=== PATIENT | female | born 1955 | race Caucasian/White ===

== ENCOUNTER 2016-08-01 10:29 | Outpatient (CLI) | payer BC ==
[2016-08-01 10:45] LABS: Hemoglobin 10.2 g/dL (12.0-16.0)
[2016-08-01 11:14] LABS: Anion Gap 23 mmol/L (10-20); BUN (Urea Nitrogen) 66 mg/dL (9.8-20.1); Calc. Creatinine Clearance 0 mL/min (70-130); Calcium 9.4 mg/dL (7.8-10.44); Carbon Dioxide 17 mmol/L (23-31); Chloride 109 mmol/L (98-107); Estimated GFR-MDRD 13; Glucose 148 mg/dL (80-115); Potassium 4.7 mmol/L (3.5-5.1); Sodium 144 mmol/L (136-145)
[2016-08-01 17:27] LABS: Iron 76 ug/dL (50-170); Iron Binding Capacity, Total 265 mcg/dL (265-497)
[2016-08-01 17:32] LABS: Creatinine, Urine 37.38 mg/dL (47-110)
== END 2016-08-01 10:30 | disposition home or self-care (01) ==
LOC: MADLAB 10:29
PROVIDERS: ATTEND Psychiatry & Neurology Psychiatry
DX: E55.9 Vitamin D deficiency, unspecified (principal); R80.9 Proteinuria, unspecified; I12.0 Hypertensive chronic kidney disease with stage 5 chronic kidney disease or end stage renal disease; N18.5 Chronic kidney disease, stage 5
CPT/HCPCS: 36415; 80048; 82570; 82728; 83540; 83550; 84156; 85014; 85018

== ENCOUNTER 2016-10-10 13:02 | Outpatient (CLI) | payer BC ==
[2016-10-10 14:09] LABS: Anion Gap 18 mmol/L (10-20); BUN (Urea Nitrogen) 59 mg/dL (9.8-20.1); Calc. Creatinine Clearance 0 mL/min (70-130); Calcium 9.4 mg/dL (7.8-10.44); Carbon Dioxide 21 mmol/L (23-31); Chloride 109 mmol/L (98-107); Estimated GFR-MDRD 11; Glucose 101 mg/dL (80-115); Potassium 4.9 mmol/L (3.5-5.1); Sodium 143 mmol/L (136-145)
[2016-10-10 17:07] LABS: Creatinine, Urine 45.91 mg/dL (47-110)
== END 2016-10-10 13:03 | disposition home or self-care (01) ==
LOC: MADLAB 13:02
PROVIDERS: ATTEND Psychiatry & Neurology Psychiatry
DX: N18.4 Chronic kidney disease, stage 4 (severe) (principal); R80.9 Proteinuria, unspecified
CPT/HCPCS: 36415; 80048; 82570; 84156

== ENCOUNTER 2017-10-24 14:57 | Outpatient (CLI) | payer BC ==
[2017-10-24 19:54] LABS: Carbamazepine-Tegretol 6.2 ug/mL (4.0-12.0)
== END 2017-10-24 14:58 | disposition home or self-care (01) ==
LOC: MADLAB 14:57
PROVIDERS: ATTEND Internal Medicine Nephrology
DX: F31.9 Bipolar disorder, unspecified (principal)
CPT/HCPCS: 80156

== ENCOUNTER 2019-07-24 10:03 | Outpatient (CLI) | payer MEDICARE, BC ==
--- NOTE | 2019-07-24 10:57 | ULT ---
Renal ultrasound: 07/24/2019 HISTORY: Chronic kidney disease, end-stage renal disease on dialysis TECHNIQUE: Multiplanar grayscale sonographic imaging of the kidneys and urinary bladder obtained. FINDINGS: The kidneys are small and echogenic, limiting detailed assessment. Right kidney measures ap proximately 8.3 x 3.7 x 4.7 cm. Left kidney measures approximately 8.1 x 3.8 x 2.8 cm. No hydronephrosis noted on either side. Urinary bladder contains approximately 18 cc of urine and appear s grossly unremarkable otherwise. IMPRESSION: Small echogenic kidneys limiting detailed assessment. These findings are consistent with the patient's history of end-stage renal disease. Small volume urine noted within the bladder.
== END 2019-07-24 10:04 | disposition home or self-care (01) ==
LOC: MADULT 10:03
PROVIDERS: ATTEND Internal Medicine Nephrology
DX: N28.1 Cyst of kidney, acquired (principal); N18.6 End stage renal disease; R93.429 Abnormal radiologic findings on diagnostic imaging of unspecified kidney
CPT/HCPCS: 76770